=== PATIENT | female | born 1960 | race Hispanic/Latino ===

== ENCOUNTER → 2025-03-12 | Day surgery (SDC) | payer OTHER ==
[~2025-03-12] MED LIST: ACETAMINOPHEN 1000 MG/100 ML IV PRN; ASPIRIN 325 MG TAB PO SCH; CEFAZOLIN SODIUM 2 GM ONE; CELECOXIB 100 MG CAP PO SCH; DIPHENHYDRAMINE HCL INJ 50 MG/ML VIAL IV PRN; DOCUSATE SODIUM 100 MG CAP PO PRN; FENTANYL CITRATE/PF 100MCG/2 ML INJ ONE; HYDROCODONE/APAP 5MG-325MG TAB PO PRN; LIDOCAINE HCL 2% LOCAL INJ 5 ML SDV VIAL INJ ONE; LOSARTAN-HCTZ1 EACH PO; METFORMIN HCL500 M1 PO; NEURONTIN400 MG PO; ONDANSETRON HCL INJ 2MG/ML 2ML 2 MG/ML VIAL IV PRN; ONDANSETRON HCL INJ 2MG/ML 2ML 2 MG/ML VIAL ONE; OZEMPIC1 MG/0.71 SC; PANTOPRAZOLE SO20 MG PO; PROPOFOL IV EMULSION 10 MG/ML 20 ML VIAL ONE; ROPIVACAINE/EPI/CLONIDINE/KET 50 ML SYRINGE INJ ONE; SODIUM CHLORIDE 0.9% 1000ML 1,000 ML IV SCH
[2025-03-12] MEDS: DEXAMETHASONE SOD PHOS 10 MG/1 ML VIAL ONE (10:20)
[2025-03-12] MEDS: GABAPENTIN 300 MG CAP ONE (10:20)
[2025-03-12] MEDS: CELECOXIB 200 MG CAP ONE (10:20)
[2025-03-12] MEDS: LACTATED RINGER'S 1,000 ML ONE (10:21)
[2025-03-12 12:28] VITALS: TEMP 98.8
[2025-03-12] MEDS: FENTANYL CITRATE/PF 100MCG/2 ML INJ ONE (12:45)
[2025-03-12] MEDS: HYDROCODONE/APAP 7.5MG-325MG 1 EA TAB PO PRN (13:15)
[2025-03-12 16:15] VITALS: BP 137/82; PULSE 85; RESP 16; O2SAT 97
== END | disposition home health service (06) ==
LOC: OR 09:31
PROVIDERS: ATTEND Specialist
DX: M17.11 Unilateral primary osteoarthritis, right knee (principal); I10 Essential (primary) hypertension; E78.5 Hyperlipidemia, unspecified; Z79.85 Long-term (current) use of injectable non-insulin antidiabetic drugs; K21.9 Gastro-esophageal reflux disease without esophagitis; E11.9 Type 2 diabetes mellitus without complications; E66.811 Obesity, class 1; Z68.32 Body mass index [BMI] 32.0-32.9, adult; Z79.84 Long term (current) use of oral hypoglycemic drugs; Z79.899 Other long term (current) drug therapy
CPT/HCPCS: 27447; 36415; 73560; 82948; 97110; 97116; 97161; C1713 ×2; C1776 ×2; J1100; J2003; J2405; J2704; J3010; J7121